=== PATIENT | male | born 1995 | race Caucasian/White ===

== ENCOUNTER 2019-01-20 02:32 | Emergency (ER) | payer BC ==
[~2019-01-20] VITALS: Ht 190.5 cm; Wt 63.5 kg
[2019-01-20 02:41] VITALS: BP_SYST 146
[2019-01-20] MEDS ORDERED: AZITHROMYCIN 250 MG TABLET PO ONE (03:00)
[2019-01-20] MEDS ORDERED: cefTRIAXone 250 MG VIAL IM ONE (03:00)
[2019-01-20 03:47] LABS: BILIRUBIN,URINE NEGATIVE (NEGATIVE); BLOOD, URINE NEGATIVE (NEGATIVE); CLARITY/URINE CLEAR (CLEAR); COLOR,URINE YELLOW (YELLOW); GLUCOSE,URINE NEGATIVE (NEGATIVE); KETONES,URINE NEGATIVE (NEGATIVE); LEUKOCYTE ESTERASE ,URINE NEGATIVE (NEGATIVE); NITRITE, URINE NEGATIVE (NEGATIVE); PH,URINE 5.5 (5.0-8.0); PROTEIN URINE NEGATIVE (NEGATIVE); UROBILINOGEN,URINE 0.2 (0.2-1.0)
[2019-01-20 04:12] VITALS: BP_SYST 146
[2019-01-22 23:12] LABS: NEISSERIA GONORRHOEAE NAA Negative (Negative)
[2019-01-23 23:46] LABS: CHLAMYDIA TRACHOMATIS NAA Indeterminate (Negative)
== END 2019-01-20 04:14 | disposition home or self-care (01) ==
LOC: SED 02:32
DX: N45.1 Epididymitis (principal); N43.3 Hydrocele, unspecified
CPT/HCPCS: 76870; 81003; 87491; 87591; 96372; 99284; J0696; Q0144